=== PATIENT | male | born 1930 | race Caucasian/White ===

== ENCOUNTER 2016-06-30 07:30 | Emergency (ER) | payer MEDICARE ==
[~2016-06-30] VITALS: Ht 172.7 cm; Wt 98.2 kg
[~2016-06-30 07:30] MED LIST: ASPI-628 PO; ATOR20TA65 PO; CHOL100043 PO; CINN500C14 PO; GABA-504 PO; HYDR25TA4 PO; KLO5T PO; LATA2.5D5 BOTH_EYES; LISI40TA PO; MELO-253 PO; METO-272 PO; METO25TA99 PO; OMEP20CA11 PO; SILD100T PO
--- NOTE | 2016-06-30 07:34 | ED.REPORT ---
HPI-General Illness Date of Service Jun 30, 2016 ED Provider: Soco Ndiaye MD 85 year old male with a history of diabetes and HTN presents to the ER via EMS complaining of lightheadedness and dizziness onset this morning upon awakening. He states that he woke up at 5:30 to use the bathroom, and became lightheaded when he returned to bed. Patient fell asleep again and awakened at 6:30 to find that symptoms were still present. After brushing his teeth and taking his morning medications, symptoms worsened to the point that patient did not feel comfortable standing or ambulating for fear of falling vs losing consciousness and patient called EMS. Patient denies word-finding difficulties, chest pain, shortness of breath, fever, chills, nausea, vomiting and diarrhea. Nursing Notes Stated Complaint: DIZZINESS Nursing Notes Reviewed: Yes Allergies: Coded Allergies: Penicillins (Verified Allergy, Severe, RASH, 06/21/14) hydrocodone (Verified Adverse Reaction, Severe, Nausea,Vomiting,Diarrhea, 06/21/14) trazodone (Verified Adverse Reaction, Severe, URINARY FREQUENCY, 06/21/14) Scheduled Ascorbate Calcium (Vitamin C) 500 Mg Tablet 500 MG PO DAILY Aspirin (Aspir 81) 81 Mg Tablet.dr 81 MG PO DAILY Atorvastatin Calcium (Atorvastatin Calcium) 20 Mg Tablet 20 MG PO Q2DAY Cholecalciferol (Vitamin D3) (Vitamin D) 1,000 Unit Tablet 2,000 UNIT PO DAILY Cinnamon Bark (Cinnamon) 500 Mg Capsule 1,000 MG PO DAILY Gabapentin (Gabapentin) 400 Mg Capsule 400 MG PO BID TAKES 400MG @ NOON; 800MG HS Hydrochlorothiazide (Hydrochlorothiazide) 12.5 Mg Capsule 12.5 MG PO DAILY Latanoprost (Xalatan) 2.5 Ml Drops 1 DROP BOTH_EYES HS Lisinopril (Lisinopril) 40 Mg Tablet 40 MG PO BID TAKES 40MG IN AM; 20MG IN PM Lutein (Lutein) 20 Mg Capsule 20 MG PO DAILY Magnesium Oxide (Magnesium) 250 Mg Tablet 250 MG PO DAILY Melatonin (Melatonin) 3 Mg Tablet 3 MG PO HS Metoprolol Succinate ER (Metoprolol Succinate ER) 25 Mg Tab.er.24h 25 MG PO AM Metoprolol Succinate ER (Metoprolol Succinate ER) 50 Mg Tab.er.24h 50 MG PO PM Omeprazole (Omeprazole) 20 Mg Capsule.dr 20 MG PO DAILY Potassium (Potassium) 99 Mg Tablet 550 MG PO DAILY Vitamin E Mixed (Vitamin E) 400 Unit Capsule 400 UNIT PO DAILY Zinc Gluconate (Zinc) 50 Mg Tablet 50 MG PO DAILY Scheduled PRN Clonazepam (Clonazepam) 0.5 Mg Tab 0.5-1 MG PO HS PRN PRN For Anxiety Miscellaneous Medications Cyanocobalamin (Vitamin B-12) (Vitamin B-12) 500 Mcg Tab.subl 500 MCG SL General Time Seen by MD: 07:34 Chief Complaint Dizziness, Other (Lightheadedness) Hx Obtained From: Patient Arrived By: Ambulance Sudden in Onset?: No Onset Occurred: 1 - 4 hours ago Symptom Duration: Since onset Associated with: Denies: Chest pain, Cough, Fever, Loss of consciousness, Nausea, Shortness of breath, Vomiting Pertinent Negative: Pt denies other symptoms Context Related History: Reports Diabetes mellitus Past Medical History Past Medical History DM HTN Arthritis Denies [place] MIBI study 04/2013, low risk study Past Surgical History Bilateral knee replacement Smoking History Former Smoker Social History Other Social History: Ambulatory Status Independent Review of Systems Full Review of Systems Constitutional: Denies: Chills, Fever Respiratory: Denies: Non-productive cough, Shortness of breath Cardiovascular: Denies: Chest pain GI: Denies: Abdominal pain, Diarrhea, Nausea, Vomiting Male: Denies Dysuria, Denies Flank pain Neurologic: Reports: Dizziness, Lightheaded, Denies: Change LOC, Confusion, Focal weakness, Headache, Numbness, Seizure, Slurred speech, Syncope, Unable to speak, Vision change, Weakness Complete sys rev & neg: except as marked. Physical Exam Vital Signs Vital Signs Date Time Temp Pulse Resp B/P Pulse Ox O2 Delivery O2 Flow Rate FiO2 06/30/16 08:37 74 16 108/52 93 Room Air 06/30/16 07:39 36.0 89 31 124/82 95 Initial VS: Reviewed Head / Eyes: Atraumatic, Normocephalic Neck: Supple, Non-tender, Full range of motion Abdomen / GI: Soft, Non-tender, No guarding, No rebound, No distention Extremities: Vascular intact, Neuro intact, No swelling, No tenderness Skin: Warm, Dry, No cyanosis Neurologic: Alert, Oriented, Nonfocal Psychiatric: Mood/affect normal, Behavior normal, Normal thought content General/Constitutional: Awake, Alert, Well developed, Well nourished ENT: Airway patent, Mucous membranes moist, Pharynx NL Large amount of cerumen present, ears bilaterally. Cerumen impacted against TM, Left ear. Respiratory / Chest: Breath sounds NL, No respiratory distress, No rales, No rhonchi, No wheezing Cardiovascular: Heart rate NL, Regular rhythm, Heart sounds NL, Cap refill not delayed, Peripheral circulation NL Interpretation & Diagnostics Lab Results Interpretation Result Diagram: 06/30/16 0710 06/30/16 0710 Test 06/30/16 07:10 White Blood Count 6.7th/mm3 (3.8-10.1) Red Blood Count 4.81mil/mm3 (4.40-5.80) Hemoglobin 14.8g/dL (13.8-17.2) Hematocrit 43.1% (41.0-50.0) Mean Corpuscular Volume 89.6fL (81-100) Mean Corpuscular Hemoglobin 30.8pg (27.0-35.0) Mean Corpuscular Hemoglobin Concent 34.3% (32.0-37.0) Red Cell Distribution Width 12.6% (12.3-15.4) Platelet Count 116bil/L (150-400) Neutrophils (%) (Auto) 71.8% (40-74) Lymphocytes (%) (Auto) 13.1% (14-46) Monocytes (%) (Auto) 12.5% (4-12) Eosinophils (%) (Auto) 2.2% (0-5) Basophils (%) (Auto) 0.1% (0-3) Sodium Level 141mEq/L (134-144) Potassium Level 4.3mEq/L (3.5-5.2) Chloride Level 100mEq/L (97-108) Carbon Dioxide Level 23mmol/L (18-29) Blood Urea Nitrogen 13mg/dL (8-27) Creatinine 0.91mg/dL (0.76-1.27) Estimat Glomerular Filtration Rate 84mL/min (>59) Glucose Level 204mg/dL (60-99) Calcium Level 8.8mg/dL (8.5-10.1) Magnesium Level 2.2mg/dL (1.6-2.6) Total Bilirubin 0.9mg/dL (0.0-1.2) Aspartate Amino Transf (AST/SGOT) 22U/L (0-50) Alanine Aminotransferase (ALT/SGPT) 19U/L (0-44) Alkaline Phosphatase 77U/L (25-160) Troponin T 0.010ug/L (0.0-0.011) Total Protein 7.6g/dL (6.4-8.4) Albumin 4.6g/dL (3.4-5.0) ECG Interpretation ECG Interpretation: Sinus rhythm, rate 73 Old inferior infarct. No trigeminy. Similar to ECG 03/08/16 Time: 08:28 Interpreted by: ED physician Rhythm Strip Interpretation : Rhythm Strip Interpretation: EMS rhythm strip: Frequent PVC's with 3:1 trigeminy. Time: 08:02 Rhythm Strip Interpretation: Interpreted by me X-Ray Chest Interpretation Chest Xray Interpretation: IMPRESSION: No acute cardiopulmonary disease. Dictated by: Mansoor Sandoval RRA Interpreted: Sho Hutchins MD on 06/30/2016 at 9:01 Transcribed by: CHANI on 06/30/2016 at 9:01 View: Portable, 1 view Interpretation / Wet Read by: Interpret - Radiologist Procedures Foreign Body Removal - Ear large solid bolus of cerum pressing against TM on the left. moderate soft wax on Right, removed. Time: 08:03 Procedure Performed by: ED physician Consent / Setup: Consent from patient, Hand hygiene observed, Stand sterile technique Foreign Body / # / Location: Cerumen Anesthesia / Instrument: Removed with loop Removal of FB: Complete Post-Procedure / Complications: TM Intact, Normal exam post-proced, No complications, Condition improved, Tolerated procedure well, Patient stable Re-Eval/Medical Decision Source of Hx: Old records Time of Eval: 08:03 Re-Evaluation/Progress Note: Completed cerumen disimpaction. Time of Eval: 09:41 Re-Evaluation/Progress Note: Discussed lab and radiology results and plan to discharge. Patient is amenable to the plan. Return precautions given. All other questions addressed. Pt feeling much better with no persistent sx Counseled Regarding: Diagnosis, Lab results, Need for follow-up, When/why to return to ED Discharge & Departure Primary Impression: Dizzy Additional Impressions: Cerumen impaction Grief reaction with prolonged bereavement Disposition: Home Discharge Condition All VS Reviewed: Yes Condition: Stable Patient Instructions: Vertigo (DC) Additional Instructions: I am sorry that you were so dizzy this morning. Your workup today does not suggest heart attack, infection, stroke, or significant persistent cardiac rhythm abnormalities. Lab work was equally reassuring. I was able to remove a significant amount of earwax that was pressed up against year tympanic membrane on the left side. This may have been contributing to the dizziness she felt. I do not find any life-threatening issues to explain your symptoms. I believe it is safe for you to go home today. I am concerned about your severe and worsening reaction to the loss of your . The loss of his spouse, particularly one who has been so close for so long, is very traumatic. Please bring this up with Dr. Welch with your follow- up visit next week. Was wonderful to see you again, I hope you do well. Referrals: Dinora Welch MD (PCP) Scribe Attestation Portions of this note were transcribed by Akhil Mason. I, Dr. Ndiaye, personally performed the history, physical exam and medical decision-making; I reviewed and confirmed the accuracy of the information in the transcribed note. Signed by: Iain Lawton, 06/30/2016 and 09:42. copies to: Dinora Welch MD, Shawna L MD Jun 30, 2016 07:34 AKHLI MASON Jun 30, 2016 07:43
[2016-06-30 07:39] VITALS: BP 124/82; PULSE 89; RESP 31; O2SAT 95
[2016-06-30 07:58] LABS: BASOPHILS % (AUTO) 0.1 % (0-3); EOSINOPHILS % (AUTO) 2.2 % (0-5); MONOCYTES % (AUTO) 12.5 % (4-12); Mean Corpuscular Hemoglobin 30.8 pg (27.0-35.0); Mean Corpuscular Volume 89.6 fL (81-100); NEUTROPHILS % (AUTO) 71.8 % (40-74); Platelet Count 116 bil/L (150-400)
[2016-06-30] MEDS ORDERED: VITA400C64 PO (08:04)
[2016-06-30] MEDS ORDERED: ASCO-294 PO (08:04)
[2016-06-30] MEDS ORDERED: MELA3TAB35 PO (08:04)
[2016-06-30] MEDS ORDERED: POTA99TA7 PO (08:04)
[2016-06-30] MEDS ORDERED: CYAN500T53 SL (08:04)
[2016-06-30] MEDS ORDERED: ZINC50TA4 PO (08:04)
[2016-06-30] MEDS ORDERED: LUTE20CA8 PO (08:04)
[2016-06-30] MEDS ORDERED: HYDR12.5 PO (08:04)
[2016-06-30] MEDS ORDERED: MAGN250T29 PO (08:04)
[2016-06-30 08:12] LABS: TROPONIN T 0.01 ug/L (0.0-0.011)
[2016-06-30 08:23] LABS: Magnesium 2.2 mg/dL (1.6-2.6)
[2016-06-30 08:37] VITALS: BP 108/52; PULSE 74; RESP 16; O2SAT 93
--- NOTE | 2016-06-30 09:02 | DRSVH ---
PROCEDURE: X-RAY CHEST ONE VIEW, PORTABLE ([id number]) INDICATIONS: acute dizziness, trigeminy TECHNIQUE: One view of the chest was acquired. COMPARISON: [facility], CR, XR ABD ACUTE SERIES 3VW, 03/24/2016, 15:41. [facility], CR, XR CHEST 1VW (PORTABLE), 03/08/2016, 15:41. FINDINGS: Surgical changes and devices: None. Lungs and pleura: No pleural effusions or pneumothorax. Lungs are clear. Mediastinum: Mediastinal contours appear normal. Heart size is normal. Bones and chest wall: No suspicious bony lesions. Overlying soft tissues appear unremarkable. IMPRESSION: No acute cardiopulmonary disease. Dictated by: Mansoor Sandoval RRJenifer Interpreted: Sho Hutchins MD on 06/30/2016 at 9:01 Transcribed by: CHANI on 06/30/2016 at 9:01 Approved by: Sho Hutchins M.D. on 06/30/2016 at 9:49
[2016-06-30 09:58] VITALS: BP 110/59; PULSE 76; RESP 16; O2SAT 94
[2016-10-24] MEDS ORDERED: LISI40TA PO (09:17)
[2016-10-24] MEDS ORDERED: GABA800T2 PO (09:17)
== END 2016-06-30 09:58 | disposition home or self-care (01) ==
LOC: SED 07:30
DX: R42 Dizziness and giddiness (principal); H61.22 Impacted cerumen, left ear; F43.20 Adjustment disorder, unspecified; E11.9 Type 2 diabetes mellitus without complications; I10 Essential (primary) hypertension; Z96.653 Presence of artificial knee joint, bilateral; Z87.891 Personal history of nicotine dependence; Z88.0 Allergy status to penicillin; Z88.5 Allergy status to narcotic agent; Z88.8 Allergy status to other drugs, medicaments and biological substances; Z79.82 Long term (current) use of aspirin

== ENCOUNTER 2016-08-02 21:58 | Emergency (ER) | payer MEDICARE ==
[~2016-08-02] VITALS: Ht 172.7 cm; Wt 98.2 kg
[~2016-08-02 21:58] MED LIST changes: +ASCO-294 PO; +CYAN500T53 SL; +HYDR12.5 PO; -HYDR25TA4 PO; +LUTE20CA8 PO; +MAGN250T29 PO; +MELA3TAB35 PO; -MELO-253 PO; +POTA99TA7 PO; -SILD100T PO; +VITA400C64 PO; +ZINC50TA4 PO
[2016-08-02 22:02] VITALS: BP 140/76; PULSE 87; RESP 20; O2SAT 97
--- NOTE | 2016-08-03 00:07 | ED.REPORT ---
HPI-General Illness Date of Service Aug 03, 2016 ED Provider: Mike Luna MD Pt is an 85 y/o male w/ a hx of HTN, DM, presenting to the ED c/o hypertension of 173/100 onset 21:00 today. BP in triage is 140/76. The patient was getting ready for bed at 21:00 and felt lightheaded and dizzy. He sat down and still felt lightheaded and decided to call his family to bring him here and they took his BP and pulse (96) prior to leaving. He denies CP, SOB, ONTIVEROS, speech changes, focal numbness or weakness, dysphagia, nausea, vomiting. He had a similar episode about 1 month ago and was seen in the ED at which time a full workup was negative. He states that when he gets these episodes he does not feel safe because he is concerned about falling because he lives alone. He is currently taking hydrochlorothiazide, lisinopril, and metoprolol. Nursing Notes Stated Complaint: HIGH BLOOD PRESSURE/DIZZY Chief Complaint: General Complaint Nursing Notes Reviewed: Yes Allergies: Coded Allergies: Penicillins (Verified Allergy, Severe, RASH, 06/21/14) hydrocodone (Verified Adverse Reaction, Severe, Nausea,Vomiting,Diarrhea, 06/21/14) trazodone (Verified Adverse Reaction, Severe, URINARY FREQUENCY, 06/21/14) Scheduled Ascorbate Calcium (Vitamin C) 500 Mg Tablet 500 MG PO DAILY Aspirin (Aspir 81) 81 Mg Tablet.dr 81 MG PO DAILY Atorvastatin Calcium (Atorvastatin Calcium) 20 Mg Tablet 20 MG PO Q2DAY Cholecalciferol (Vitamin D3) (Vitamin D) 1,000 Unit Tablet 2,000 UNIT PO DAILY Cinnamon Bark (Cinnamon) 500 Mg Capsule 1,000 MG PO DAILY Gabapentin (Gabapentin) 400 Mg Capsule 400 MG PO BID TAKES 400MG @ NOON; 800MG HS Hydrochlorothiazide (Hydrochlorothiazide) 12.5 Mg Capsule 12.5 MG PO DAILY Latanoprost (Xalatan) 2.5 Ml Drops 1 DROP BOTH_EYES HS Lisinopril (Lisinopril) 40 Mg Tablet 40 MG PO BID TAKES 40MG IN AM; 20MG IN PM Lutein (Lutein) 20 Mg Capsule 20 MG PO DAILY Magnesium Oxide (Magnesium) 250 Mg Tablet 250 MG PO DAILY Melatonin (Melatonin) 3 Mg Tablet 3 MG PO HS Metoprolol Succinate ER (Metoprolol Succinate ER) 25 Mg Tab.er.24h 25 MG PO AM Metoprolol Succinate ER (Metoprolol Succinate ER) 50 Mg Tab.er.24h 50 MG PO PM Omeprazole (Omeprazole) 20 Mg Capsule.dr 20 MG PO DAILY Potassium (Potassium) 99 Mg Tablet 550 MG PO DAILY Vitamin E Mixed (Vitamin E) 400 Unit Capsule 400 UNIT PO DAILY Zinc Gluconate (Zinc) 50 Mg Tablet 50 MG PO DAILY Scheduled PRN Clonazepam (Clonazepam) 0.5 Mg Tab 0.5-1 MG PO HS PRN PRN For Anxiety Miscellaneous Medications Cyanocobalamin (Vitamin B-12) (Vitamin B-12) 500 Mcg Tab.subl 500 MCG SL General Time Seen by MD: 00:05 Chief Complaint Other (HTN) Hx Obtained From: Patient Arrived By: Walk-in Sudden in Onset?: No Onset Occurred: 1 - 4 hours ago Symptom Duration: Since onset Severity: Current: No pain currently Severity: Maximum: No pain Recent Healthcare: Previous diagnosis Similar Sx Previous: Yes Past Medical History Past Medical History DM HTN Peripheral neuropathy Arthritis Denies [place] MIBI study 04/2013, low risk study Past Surgical History Bilateral knee replacement Cataracts Smoking History Former Smoker Social History Other Social History: Ambulatory Status Independent Review of Systems Full Review of Systems Constitutional: Denies: Chills, Fever Respiratory: Denies: Non-productive cough, Shortness of breath Cardiovascular: Denies: Chest pain, Dyspnea on exertion GI: Denies: Abdominal pain, Diarrhea, Nausea, Vomiting Neurologic: Reports: Dizziness, Lightheaded, Denies: Change LOC, Confusion, Focal weakness, Headache, Numbness, Seizure, Slurred speech, Unable to speak Complete sys rev & neg: except as marked. Physical Exam Vital Signs Vital Signs Date Time Temp Pulse Resp B/P Pulse Ox O2 Delivery O2 Flow Rate FiO2 08/03/16 01:28 87 16 113/67 98 Room Air 133/76 08/02/16 22:02 36.2 87 20 140/76 97 Room Air Initial VS: Reviewed, Vital signs normal Head / Eyes: Atraumatic, Normocephalic, PERRL ENT: Mucous membranes moist, Conjunctiva normal, No scleral icterus Neck: Supple, Full range of motion Respiratory: Breath sounds normal, Clear to auscultation, No respiratory distress Cardiovascular: Regular rate & rhythm, Heart sounds normal, Intact distal pulses Abdomen / GI: Soft, Non-tender, No guarding, No rebound, No distention Extremities: Vascular intact, Neuro intact, No swelling, No tenderness Skin: Warm, Dry, No cyanosis Psychiatric: Mood/affect normal, Behavior normal, Normal thought content General/Constitutional: Awake, Alert, No acute distress, Well appearing, Cooperative, Not toxic appearing Neurologic: Oriented X3, Speech NL, No motor deficits, No sensory deficits, CN II - XII intact, Cerebellar NL, Memory NL Interpretation & Diagnostics Lab Results Interpretation Result Diagram: 08/03/160 08/03/160 Test 08/03/16 00:40 White Blood Count 6.0th/mm3 (3.8-10.1) Red Blood Count 4.33mil/mm3 (4.40-5.80) Hemoglobin 13.1g/dL (13.8-17.2) Hematocrit 38.3% (41.0-50.0) Mean Corpuscular Volume 88.5fL (81-100) Mean Corpuscular Hemoglobin 30.3pg (27.0-35.0) Mean Corpuscular Hemoglobin Concent 34.2% (32.0-37.0) Red Cell Distribution Width 12.0% (12.3-15.4) Platelet Count 139bil/L (150-400) Neutrophils (%) (Auto) 70.2% (40-74) Lymphocytes (%) (Auto) 16.3% (14-46) Monocytes (%) (Auto) 10.3% (4-12) Eosinophils (%) (Auto) 2.5% (0-5) Basophils (%) (Auto) 0.2% (0-3) Sodium Level 139mEq/L (134-144) Potassium Level 4.4mEq/L (3.5-5.2) Chloride Level 100mEq/L (97-108) Carbon Dioxide Level 23mmol/L (18-29) Blood Urea Nitrogen 16mg/dL (8-27) Creatinine 0.93mg/dL (0.76-1.27) Estimat Glomerular Filtration Rate 82mL/min (>59) Glucose Level 272mg/dL (60-99) Calcium Level 8.6mg/dL (8.5-10.1) Total Bilirubin 0.6mg/dL (0.0-1.2) Aspartate Amino Transf (AST/SGOT) 20U/L (0-50) Alanine Aminotransferase (ALT/SGPT) 20U/L (0-44) Alkaline Phosphatase 78U/L (25-160) Troponin T 0.010ug/L (0.0-0.011) Total Protein 6.9g/dL (6.4-8.4) Albumin 4.1g/dL (3.4-5.0) Hold Guardado Top Tube Received (Received) ECG Interpretation Time: 01:10 Interpreted by: ED physician Normal ECG Interpretation: Normal ECG w/ rate of... (75), Normal rate, Normal sinus rhythm, No acute ischemic changes, Normal QRS, Normal axis, Normal intervals, Adequate tracing Re-Eval/Medical Decision Med Decision/Clinical Course 85-year-old male history of hypertension presenting with episode of dizziness earlier this morning. Present with similar story one month ago with negative workup. His symptoms of long since resolved. His laboratory without any symptoms here. His vital signs are stable. Orthostatics negative. Labs are unremarkable. EKG no etiology for symptoms. Patient is advised to check his blood pressure regularly and follow up with his primary doctor on Thursday. Return precautions given. He is not on any blood thinners. Time of Eval: 03:03 Re-Evaluation/Progress Note: Pt rechecked. Informed pt of plan for treatment. Pt understands and agrees with plan for treatment. F/U instructions and RTER warnings given. All questions addressed. Counseled Regarding: Diagnosis, Lab results, Need for follow-up, When/why to return to ED Discharge & Departure Primary Impression: Dizziness Additional Impressions: Lightheadedness Hypertension Hypertension type: unspecified secondary hypertension Hypertension goal: unspecified goal Qualified Code: I15.9 - Secondary hypertension, unspecified Disposition: Home Discharge Condition All VS Reviewed: Yes Condition: Stable Patient Instructions: Chronic Hypertension (ED) Additional Instructions: Your labs were totally normal. The cause of your symptoms may be due to a reaction from your blood pressure medications. I recommend you document your blood pressure 3 times per day or when you are feeling dizzy. Follow-up with your primary care provider on Thursday to further evaluate these episodes of dizziness as an outpatient. Referrals: Dinora Welch MD (PCP) Scribe Attestation Portions of this note were transcribed by James Prieto. I, Dr. Luna, personally performed the history, physical exam and medical decision-making; I reviewed and confirmed the accuracy of the information in the transcribed note. Signed by Iain Gamino, 08/03/16 - 0030 copies to: Dinora Welch MD, Ben M MD Aug 03, 2016 00:07 JAMES PRIETO Aug 03, 2016 00:12
[2016-08-03 00:55] LABS: BASOPHILS % (AUTO) 0.2 % (0-3); EOSINOPHILS % (AUTO) 2.5 % (0-5); MONOCYTES % (AUTO) 10.3 % (4-12); Mean Corpuscular Hemoglobin 30.3 pg (27.0-35.0); Mean Corpuscular Volume 88.5 fL (81-100); NEUTROPHILS % (AUTO) 70.2 % (40-74); Platelet Count 139 bil/L (150-400)
[2016-08-03 01:16] LABS: TROPONIN T 0.01 ug/L (0.0-0.011)
[2016-08-03 01:28] VITALS: BP_SYST 113; BP_SYST 133; BP_DIAS 67; BP_DIAS 76; PULSE 87; RESP 16; O2SAT 98
[2016-08-03 03:23] VITALS: BP 118/58; PULSE 78; RESP 16; O2SAT 98
[2016-10-24] MEDS ORDERED: LISI40TA PO (09:17)
[2016-10-24] MEDS ORDERED: GABA800T2 PO (09:17)
== END 2016-08-03 03:23 | disposition home or self-care (01) ==
LOC: SED 21:58
DX: R42 Dizziness and giddiness (principal); I15.9 Secondary hypertension, unspecified; E11.40 Type 2 diabetes mellitus with diabetic neuropathy, unspecified; Z96.653 Presence of artificial knee joint, bilateral; Z87.891 Personal history of nicotine dependence; Z79.82 Long term (current) use of aspirin; Z88.0 Allergy status to penicillin; Z88.5 Allergy status to narcotic agent

== ENCOUNTER 2016-10-28 06:51 | Day surgery (SDC) | payer MEDICARE ==
--- NOTE | 2016-10-24 13:06 | PCM.ANEPRE ---
Anesthesia Pre-Op Review Reason for Review: + dalila hx Anesthesia Recommendations: Proceed with Procedure Additional Comments 85 y/o male scheduled for carpal tunnel release. Stop Bang 09/29, refuses/doesn' t use CPAP. Low risk surgery with few postoperative pain requirements. Proceed with surgery as planned pending evaluation by DOS anesthesiologist. Consider outpatient DALILA orders. Alexander Brown MD Oct 24, 2016 13:06
[~2016-10-28] VITALS: Ht 172.7 cm; Wt 92.1 kg
[~2016-10-28 06:51] MED LIST changes: +GABA800T2 PO; +Lactated Ringer's 1,000 ML IV SCH
[2016-10-28] MEDS ORDERED: Propofol 10,000 mCg/mL 20 mL Inj ONE (06:52)
--- NOTE | 2016-10-28 07:02 | PCM.HPANE ---
Patient Data Surgeon Admitting Provider: Attending Provider:Alexander Omalley DO Primary Care Physician:Dinora Welch MD Other Provider:Haley Wrightingham Anesthesia Reason for Visit Left Carpal Tunnel Syndrome Ht/WT & BMI Height (Feet): 5 Height (Inches): 8 Weight (Kilograms): 94.166 Body Mass Index 31.00 Allergies Coded Allergies: Penicillins (Verified Allergy, Severe, RASH, 10/24/16) hydrocodone (Verified Adverse Reaction, Severe, Nausea,Vomiting,Diarrhea, 10/24/16) trazodone (Verified Adverse Reaction, Severe, URINARY FREQUENCY, 10/24/16) Past Anesthesia History Anesthesia History: Denies:: Anesthesia Reactions, Malignant Hyperthermia Diabetes History Hx Diabetes?: Yes Type of Diabetes: Type II Glycemic Control: Diet Controlled MRSA MRSA: No Medications Blood Thinner: Aspirin Reported Medications Aspirin 81 Mg Ivabgo12 Mg PO DAILY Ref 0 10/28/16 Lisinopril 40 Mg Rmtzlf28 Mg PO AM 30 Days Ref 0 10/24/16 Gabapentin 800 Mg Wrxrhd462 Mg PO HS Ref 0 10/24/16 Vitamin E Mixed (Vitamin E)400 Unit Dqxmopn485 Unit PO DAILY 30 Days 06/30/16 Zinc Gluconate (Zinc)50 Mg Lgjanw38 Mg PO DAILY 06/30/16 Ascorbate Calcium (Vitamin C)500 Mg Zhcgev831 Mg PO DAILY 06/30/16 Cyanocobalamin (Vitamin B-12) (Vitamin B-12)500 Mcg Tab.ibeh929 Mcg SL 06/30/16 Potassium 99 Mg Gacabe242 Mg PO DAILY 06/30/16 Lutein 20 Mg Biwlhww69 Mg PO DAILY 06/30/16 Melatonin 3 Mg Tablet3 Mg PO HS 06/30/16 Magnesium Oxide (Magnesium)250 Mg Nnezfc601 Mg PO DAILY 06/30/16 Hydrochlorothiazide 12.5 Mg Oeguopp80 Mg PO DAILY 30 Days Ref 0 06/30/16 Omeprazole 20 Mg Capsule.dr20 Mg PO DAILY 30 Days Ref 0 06/20/14 Metoprolol Succinate ER 50 Mg Tab.er.24h50 Mg PO PM 30 Days Ref 0 06/20/14 Metoprolol Succinate ER 25 Mg Tab.er.24h25 Mg PO AM 30 Days Ref 0 06/20/14 Clonazepam 0.5 Mg Tab0.5-1 Mg PO HS PRN For Anxiety 30 Days Ref 0 06/20/14 Lisinopril 40 Mg Hlgiiv90 Mg PO HS 30 Days Ref 0 06/20/14 Atorvastatin Calcium 20 Mg Cmgepk93 Mg PO Q2DAY #30 TABLET Ref 0 06/20/14 Gabapentin 400 Mg Jvvxzfz927 Mg PO NOON 30 Days Ref 0 TAKES 400MG @ NOON; 800MG HS 06/20/14 Latanoprost (Xalatan)2.5 Ml Drops1 Drop BOTH_EYES HS #1 BOTTLE Ref 0 06/20/14 Cholecalciferol (Vitamin D3) (Vitamin D)1,000 Unit Tablet2,000 Unit PO DAILY #1 BOTTLE Ref 0 06/20/14 Cinnamon Bark (Cinnamon)500 Mg Capsule1,000 Mg PO DAILY 06/20/14 Discontinued Reported Medications Aspirin (Aspir 81)81 Mg Tablet.dr81 Mg PO DAILY Ref 0 06/20/14 History History of ENT Problems?: Yes HEENT History: Positive for:: Cataracts Glaucoma Hearing Problem Sinus Problem (POST NASAL GTT) Denies:: Dysphagia Denture Type: None Teeth Condition: Within Normal Limits Hx of Heart Problems?: Yes Cardiovascular History: Positive for:: Chest Pain ("rarely") Hypertension Irregular Heartbeat (PVC'S PT REPORTS PALPITATIONS) Valvular Heart Disease (MILD ) Denies:: Cardiac Surgery Congestive Heart Failure Edema Heart Murmur (ECHO 12/2014 EF 60-65%) Pacemaker Thrombophlebitis Hx of Respiratory Problem?: Yes Respiratory History: Positive for:: Cough (CHRONIC COUGH) Denies:: Asthma COPD Chest Surgery Dyspnea Emphysema Hemoptysis Pneumonia Tuberculosis Use of C-PAP Machine (PRESTON+ SLEEP STUDY 01/2013) Hx Neurologic Problems?: Yes Neurological History: Denies:: Alzheimer's Disease CVA Dementia Dizziness Headaches Parkinson's Disease Seizures Other Neurological Pertinent: PERIPHERAL NEUROPATHY RESTLESS LEG SYNDROME Hx of GI Problems?: Yes Hx of Problems?: Yes Genitourinary History: Positive for:: Urinary Tract Infection (MICROHEMATURIA) Denies:: HX of Hemodialysis Kidney Stones HX of Peritoneal Dialysis: No Other Pertinent History: URINARY RETENTION Male Hx: Positive for:: Prostate Problems (S/P TURP) Scrotal Mass (HX OF ORCHIITIS/EPIDIDYMITIS) Denies:: Testicular Surgery Skin History: Denies:: History Skin Disorders? 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) Denies:: Back Injury (C/OF BACK PAIN) Hx of Psycho/Social Problems?: Yes Psycho Social History: Positive for:: Anxiety Denies:: Bipolar Disorder Hx Depression Suicide Attempt Hx Surgeries?: Yes (CATARACTS, INGRID KNEE REPLACEMENT) Hx Any Other Health Problems?: Yes Other History: Positive for:: Hospitalization (CHEST PAIN, NEAR SYNCOPE) Denies:: Cancer Endocrine Disease Thyroid Disease History Blood Transfusions: Denies:: Blood Transfusions Hx Diabetes: Yes Hx Alcohol Use: NoHx Substance Use: No Smoking Status: Former Smoker Have You Smoked inLast 12 mo: No Stop/Bang S-Snoring: Do You Snore Loudly: Yes T-Tired: feel tired, fatigued: Yes O-Obsered: Observed not breath: No P-Blood Pressure: treated: Yes B- Body Mass Index > 35 kg/m2: No A- Age over 50: Yes N- Neck Large Circumference: No G- Gender Male: Yes PRESTON Total Score: 5 PRESTON Category 2: Yes Risk Assessment Category Category 1A: Patient has history of documented sleep apnea, and HAS NOT received any narcotic, sedative or anesthesia administration during this stay. Category 1B: Patient has history of documented sleep apnea, and HAS received any narcotic , sedative or anesthesia administration during this stay Category 2: Patient has SUSPECTED Obstructive Sleep Apnea, and HAS received any narcotic , sedative or anesthesia administration during this stay. Category 3: Patient has SUSPECTED Obstructive Sleep Apnea and HAS NOT received narcotic, sedative or anesthesia administration during this stay. Category 4: Outpatient in Procedural Areas with known sleep apnea or who screen positive for High Risk via the STOP/BANG questionnaire. Exam Exam General Appearance: Alert, Oriented X3, Cooperative, No Acute Distress HEENT/AIRWAY: MP 2, Neck Movement (from), Mouth Opening (wnl) Lungs: Clear to Auscultation Heart: Exam Unremarkable Plan Impression Patient chart reviewed, patient interviewed and anesthestic plan with risks, benefits, and alternatives discussed, and informed consent obtained. ASA Physical Status: ASA2 Mod Systemic Disease Anesthetic Plan: Regional Block Bene/Risks/Altern/Consents: Yes HP Complete Prior to Induction: Yes Bhavik Tucker MD Oct 28, 2016 07:01
[2016-10-28] MEDS: Lactated Ringer's 1,000 ML IV SCH ×2 (07:17→08:00)
[2016-10-28] MEDS ORDERED: ASPI-973 PO (07:28)
[2016-10-28 07:45] VITALS: BP 103/61; PULSE 70; RESP 16; O2SAT 94
[2016-10-28 08:05] LABS: BASOPHILS % (AUTO) 0.1 % (0-3); EOSINOPHILS % (AUTO) 2.5 % (0-5); MONOCYTES % (AUTO) 13.9 % (4-12); Mean Corpuscular Hemoglobin 29.9 pg (27.0-35.0); NEUTROPHILS % (AUTO) 72.9 % (40-74); Platelet Count 112 bil/L (150-400)
[2016-10-28] MEDS ORDERED: Bupivacaine-MPF 0.25% 30 mL Inj INFILTRATE ONE (08:40)
[2016-10-28] MEDS ORDERED: Lactated Ringer's 1,000 ML IV SCH (08:44)
[2016-10-28] MEDS ORDERED: Lactated Ringer's 500 ML IV PRN (08:44)
[2016-10-28] MEDS ORDERED: fentaNYL-PF 50 mCg/mL 2 mL Inj IVPUSH PRN (08:45)
[2016-10-28] MEDS ORDERED: Dexamethasone 4 mg/mL Inj IVPUSH PRN (08:45)
[2016-10-28] MEDS ORDERED: Phenylephrine 10,000 mCg/mL Inj IVPUSH PRN (08:45)
[2016-10-28] MEDS ORDERED: hydrALAZINE 20 mg/mL Inj IVPUSH PRN (08:45)
[2016-10-28] MEDS ORDERED: Atropine 0.4 mg/mL Inj IVPUSH PRN (08:45)
[2016-10-28] MEDS ORDERED: EPHEDrine Sulfate 50 mg/mL Inj IVPUSH PRN (08:45)
[2016-10-28] MEDS ORDERED: Labetalol 5 mg/mL 4 mL Inj IV PRN (08:45)
[2016-10-28] MEDS ORDERED: Ondansetron 2 mg/mL 2 mL Inj IVPUSH PRN (08:45)
[2016-10-28 09:10] VITALS: BP 95/55; PULSE 69; RESP 12; O2SAT 93
[2016-10-28 09:15] VITALS: BP 95/67; PULSE 76; RESP 12; O2SAT 94
[2016-10-28] MEDS ORDERED: Acetaminophen IV 1,000 MG in IV Premix 1 EACH IV ONE (09:15)
[2016-10-28] MEDS ORDERED: Ketorolac 15 mg/mL Inj IVPUSH ONE (09:15)
[2016-10-28] MEDS ORDERED: oxyCODONE-Acetamin 5-325 mg Tablet PO PRN (09:15)
[2016-10-28 09:25] VITALS: BP 100/58; PULSE 65; RESP 14; O2SAT 94
--- NOTE | 2016-10-28 09:31 | PCM.ANEP1 ---
Post Anesthesia PACU Phase 1 Assessment Vital Signs Vital Signs Date Time Temp Pulse Resp B/P Pulse Ox O2 Delivery O2 Flow Rate FiO2 10/28/16 09:25 65 14 100/58 94 Room Air 10/28/16 09:15 76 12 95/67 94 Room Air 10/28/16 09:10 36.2 69 12 95/55 93 Room Air 10/28/16 07:45 36.0 70 16 103/61 94 Room Air Anesthetic Administered: Regional Block Level of Alertness: Awake, talking PATRICK's with Equal Strength: Yes Pain: No Nausea or Vomiting: No CV Function & Hydration Stable: Yes Airway Device: Oxygen Delivery: Room Air Lungs: Normal Air Movement PACU Phase 2 Assessment Complications: No Follow up Care: No Patient Instructions Provided: N/A Bhavik Tucker MD Oct 28, 2016 09:31
--- NOTE | 2016-10-28 09:47 | OP ---
[address] [address] OPERATIVE REPORT PATIENT: ANGY MURCIA : 1930 MR#: [id number] ADMIT: 10/28/2016 JOB ID: [id number] DATE OF SURGERY: 10/28/2016 PREOPERATIVE DIAGNOSIS(ES): Left carpal tunnel syndrome. POSTOPERATIVE DIAGNOSIS(ES): Left carpal tunnel syndrome. PROCEDURE: Left carpal tunnel release. SURGEON: Alexander Omalley DO ANESTHESIA: IV regional. INDICATIONS: The patient is an 85-year-old male with left hand numbness and tingling secondary to carpal tunnel syndrome which has failed conservative measures and he wished to proceed with a left carpal tunnel release. We discussed the risks, benefits, and possible complications of surgery. All questions were answered. He wished to proceed. PROCEDURE IN DETAIL: The patient is brought to the operating room. He was given a IV regional anesthetic. The left upper extremity was sterilely prepped and draped. An incision was made centered over the carpal tunnel in line with the 4th ray. Dissection was carefully carried through the subcutaneous tissue and the palmar fascia was then incised in line with the skin incision. The transverse carpal ligament was then incised in its entirety in line with the skin incision overlying the carpal tunnel. Care was taken to ensure that this was complete proximal to distal and that the release was complete. The wound was then irrigated and closed with interrupted nylon suture. Marcaine was added as an adjunct local anesthetic and sterile dressings and a volar splint were applied. The patient tolerated the procedure well. Blood loss was minimal. POSTOPERATIVE PROTOCOL: Have the patient maintain his splint and ice and elevate. Follow up in two weeks or sooner if needed.
[2016-10-28 10:01] VITALS: BP 104/51; PULSE 70; O2SAT 96
== END 2016-10-28 23:59 | disposition home or self-care (01) ==
LOC: SAS 06:51
PROVIDERS: ATTEND Orthopaedic Surgery
DX: G56.02 Carpal tunnel syndrome, left upper limb (principal); I10 Essential (primary) hypertension; E11.9 Type 2 diabetes mellitus without complications; E78.5 Hyperlipidemia, unspecified; K21.9 Gastro-esophageal reflux disease without esophagitis; N40.1 Benign prostatic hyperplasia with lower urinary tract symptoms; R33.8 Other retention of urine; G25.81 Restless legs syndrome; M76.62 Achilles tendinitis, left leg; M19.90 Unspecified osteoarthritis, unspecified site; F41.9 Anxiety disorder, unspecified; G47.33 Obstructive sleep apnea (adult) (pediatric); Z79.82 Long term (current) use of aspirin; Z96.653 Presence of artificial knee joint, bilateral; Z87.891 Personal history of nicotine dependence
CPT/HCPCS: 36415; 64721; 80048; 85025; J3010; J7120